=== PATIENT | male | born 1985 | race Two or more races ===

== ENCOUNTER 2023-11-07 21:28 | Emergency (ER) | payer OTHER ==
[~2023-11-07] VITALS: Ht 170.2 cm; Wt 72.6 kg
[2023-11-07 21:44] VITALS: BP 155/90; TEMP 98.2; O2SAT 100
[2023-11-07] MEDS ORDERED: LORAZEPAM 1 MG TABLET PO ONE (22:00)
== END 2023-11-07 21:44 ==
LOC: ER 21:29
DX: R06.02 Shortness of breath (principal)